=== PATIENT | female | born 1990 | race Caucasian/White ===

== ENCOUNTER 2021-09-11 01:04 | Day surgery (SDC) | payer OTHER, SELFPAY ==
[2021-09-10 16:33] VITALS: BMI 22.3
[2021-09-11 07:56] VITALS: BP 130/80; PULSE 90; RESP 16; TEMP 36.6; O2SAT 100
[2021-09-11] MEDS: LACTATED RINGERS 1,000 ML 30 ML IV CONT (08:00)
[2021-09-11] MEDS: ACETAMINOPHEN 500 MG TABLET 1000 MG PO (08:20)
[2021-09-11 08:22] LABS: Hematocrit 41.9 % (37.0-47.0); Hemoglobin 13.9 g/dL (12.0-15.0)
--- NOTE | 2021-09-11 08:31 | WPDANESEPPF ---
Anes - Initial Pre Proc Eval Procedure: Operation Date: 09/11/21 09:30 Proposed Procedures p Suction Dilation and Curettage - Marcia Toledo MD Date/Time: 09/11/21 08:31 Surgeon: Marcia Toledo MD Pre Op Diagnosis: Missed Ab Patient Data Age: 31 Gender: F Height: 1.63 m Weight: 58.97 kg Allergies Allergy/AdvReac Type Severity Reaction Status Date / Time sulfamethoxazole Allergy Intermediate Hives Verified 09/11/21 08:38 [From Bactrim] trimethoprim [From Bactrim] Allergy Intermediate Hives Verified 09/11/21 08:38 Home Medications Medication Instructions Recorded Confirmed Type No Home Medications 09/10/21 09/10/21 History Laboratory Tests 09/11/21 09/11/21 08:12 08:12 Hgb Pending Hct Pending PT Pending INR Pending APTT Pending Patient hx anesthesia problems: none Family hx anesthesia problems: none Results Review: All pre-operative results and documents have been reviewed as part of the pre-operative evaluation. [facility] Past Medical History Medical History (Updated 09/11/21 @ 08:31 by Shukri Ballesteros DO) VWD (von Willebrand's disease) Social History Social History Smoking status: Never smoker Second hand tobacco smoke exposure: No Alcohol intake: current Alcohol use details: occassionally/socially Substance use: never Substance use type: does not use Living arrangements: with family Spiritual care concerns: No Anes - Eval Final PreProcedure Day of Procedure 09/11/21 08:31 Patient weight: normal Heart: regular rate and rhythm Lungs: clear to auscultation and normal air movement Airway: Mallampati scale class II Neurological: alert and oriented Last oral intake: >/= 8 hours ASA classification: II Emergent: no Anesthetic plan: proceed Anesthesia type and monitoring: general GIVS and standard monitoring Results Review: All pre-operative results and documents have been reviewed as part of the pre-operative evaluation. Informed Consent: The patient's anesthetic plan and its attendant risks and benefits were discussed with the patient/family/POA. Questions were solicited and answers provided to the satisfaction of the patient/family/POA.
[2021-09-11 08:34] LABS: INR 1.1; Prothrombin Time 13.3 Seconds (11.1-14.7)
--- NOTE | 2021-09-11 09:19 | PM.IMHP ---
H&P: HPI History of Present Illness Date/Time: 09/11/21 09:19 Chief Complaint: miscarriage Narrative: Suki is a 31yo at 10w by dates, 7w by US yesterday with mab. hcg was also decreasing. US showed FP without FHT on 2 US two weeks apart. She has had no bleeding. Opos. Does have VW disease. prescribed Stimate but pharmacy did not have it available, nor here, so she got desmopressin IV. Review of Systems Review of Systems: All systems reviewed & are unremarkable except as noted in HPI and below PMFSH Past Medical History Medical History (Updated 09/11/21 @ 09:22 by Marcia Toledo MD) VWD (von Willebrand's disease) Social History Social History Smoking status: Never smoker Second hand tobacco smoke exposure: No Alcohol intake: current Alcohol use details: occassionally/socially Substance use: never Substance use type: does not use Living arrangements: with family Spiritual care concerns: No Meds Home Medications and Allergies Home Medications Medication Instructions Recorded Confirmed Type No Home Medications 09/10/21 09/11/21 History Allergies Allergy/AdvReac Type Severity Reaction Status Date / Time sulfamethoxazole Allergy Intermediate Hives Verified 09/11/21 08:38 [From Bactrim] trimethoprim [From Bactrim] Allergy Intermediate Hives Verified 09/11/21 08:38 Vital Signs Vital Signs - 24 hr 09/11/21 07:56 Temperature 97.8 F Pulse Rate 90 Respiratory Rate 16 Blood Pressure 130/80 Pulse Oximetry 100 Exam Const: General: no acute distress Resp: Effort & Inspection: normal respiratory effort Auscultation: clear to auscultation bilaterally Cardio: Rate: regular rate Rhythm: regular rhythm GI: GI Palp: Yes Soft to palpation Extrem: General: normal to inspection H&P: Results Labs Labs: Short CBC 09/11/21 Range/Units 08:12 Hgb 13.9 (12.0-15.0) g/dL Hct 41.9 (37.0-47.0) % Assessment and Plan Assessment and plan (1) Missed : Code(s): O02.1 - Missed Status: Acute (2) Von Willebrand disease: Code(s): D68.0 - Von Willebrand's disease Status: Acute Additional Plan Pt has opted for D and C. Previously discussed RBA and consented in office. desmopressin given Rh pos. will proceed with suction D and Alen. sea preop
--- NOTE | 2021-09-11 09:23 | WPDHPUPDATE1 ---
History and Physical Update Update Date/Time: 09/11/21 09:23 History and Physical has been reviewed, including an updated exam of the patient. There are NO changes in the patient's condition. Risks, benefits, and alternatives have been discussed and questions answered. Patient agrees to proceed with procedure.
[2021-09-11] MEDS: DOXYCYCLINE 100 MG/NS 100 ML 100 MG/100 ML BAG IVPB (09:34)
--- NOTE | 2021-09-11 09:55 | P.OP_ITS ---
Procedure Note - Detailed Date of Procedure 09/11/21 Pre-op Diagnosis Missed Ab Post-op Diagnosis Same Procedure Performed suction D and C Surgeon Marcia Toledo MD Anesthesia MAC Description of Procedure The patient was taken to the OR and placed in supine position in dorsal lithotomy. She received MAC anesthesia and doxycycline. She was prepped and draped in normal fashion. A speculum was placed and the cervix was grasped with a single tooth tenaculum. A paracervical block was placed with 10cc 0.25% mar rosana with epinephrine. The cervix was sequentially dilated to 8 frederick. The suction was tested and then the suction catheter was inserted into the uterine cavity. Several passes were made until no further products of conception were obtained. The tenaculum was removed and hemostasis was obtained with pressure and monsel's solution. The speculum was removed. The patient tolerated the procedure well and was taken to the recovery room in stable condition. Drains No Packing No Pathology Yes Complications No immediate complications Condition Stable Disposition Same day
[2021-09-11 09:56] VITALS: BP 101/51; PULSE 96; RESP 16; O2SAT 99
[2021-09-11 10:25] VITALS: BP 100/64; PULSE 81
== END 2021-09-11 10:42 | disposition home or self-care (01) ==
PROVIDERS: Anesthesiology; Visit Provider Obstetrics & Gynecology
PROC: (CPT 59820; principal; 2021-09-11 09:30)
DX: O02.1 Missed abortion (principal); D68.0 Von Willebrand disease; Z3A.10 10 weeks gestation of pregnancy
CPT/HCPCS: 59820; 36415; 85014; 85018; 85461; 85610; 85730; 88305; A9270; J2210; J2250; J2597; J2704; J3010; J7120

== ENCOUNTER 2022-07-04 13:49 | Outpatient (CLI) | payer OTHER, SELFPAY ==
--- NOTE | 2022-07-04 13:49 | OBADM ---
This patient, Suki Connolly, admitted to the OB room OB Post 117 for observation. Patient/family oriented to hospital policies and general routines including ID bracelet, bed and alarms, visiting hours, pain management, procedures, bathroom and other care routines, personal items, smoking policy, room service/diet, and visiting hours. Patient/Family are encouraged to report perceived risks to care and to ask questions if they do not understand what they are told or what they should do.
[2022-07-04 14:15] VITALS: BP 130/84; PULSE 87
[2022-07-04 14:17] LABS: Basophils Percent Auto 0.3 % (0.2-1.2); Eosinophils Absolute Auto 0.1 K/mm3 (0-0.3); Eosinophils Percent Auto 0.9 % (0-4.4); Hematocrit 37.8 % (37.0-47.0); Hemoglobin 12.3 g/dL (12.0-15.0); Immature Granulocyte Absolute 0.08 K/mm3 (0.00-0.031); Immature Granulocyte Percent A 0.9 % (0-0.5); Immature Platelet Fraction Pct 27.1 % (0.9-11.2); Lymphocytes Absolute Auto 2.14 K/mm3 (0.9-3.2); Lymphocytes Percent Auto 24.6 % (18.3-44.2); Mean Corpuscular HGB Conc 32.5 g/dl (32-36); Mean Corpuscular Hemoglobin 28.5 pg (26-34); Mean Corpuscular Volume 87.5 fl (80-100); Monocytes Absolute Auto 0.6 K/mm3 (0.1-0.6); Monocytes Percent Auto 6.6 % (2.6-8.5); Neutrophils Absolute Auto 5.8 K/mm3 (1.3-6.7); Neutrophils Percent Auto 66.7 % (45.5-73.1); Platelet Count Result 126 k/mm3 (150-375); Red Blood Count 4.32 M/mm3 (4.2-5.4); Red Cell Distribution Width 14.1 % (11.5-14.5); White Blood Count 8.7 K/mm3 (4.5-10.0)
[2022-07-04 14:19] VITALS: BMI 25.7
[2022-07-04 14:26] LABS: Alanine Aminotransferase 22 U/L (6-35); Albumin Level 3.7 g/dL (3.5-5.1); Alkaline Phosphatase 79 U/L (38-126); Anion Gap 7 mmol/L (8-16); Aspartate Amino Transferase 24 U/L (14-36); Bilirubin,Total 0.4 mg/dL (0.2-1.3); Blood Urea Nitrogen 9 mg/dL (7-17); Calcium 8.5 mg/dL (8.4-10.2); Carbon Dioxide 21 mmol/L (22-30); Chloride 105 mmol/L (98-107); Estimated CRCL calculation 114 ml/min; Estimated Glomerular Filt Rate > 60; Glucose 89 mg/dL (65-110); Large Platelets Present; Platelet Estimate Decreased (Adequate); Potassium 3.8 mmol/L (3.4-5.0); Schistocytes None Seen (NORMAL); Sodium 133 mmol/L (137-145)
[2022-07-04 14:30] VITALS: BP 134/84; PULSE 81
[2022-07-04 14:43] VITALS: BP 130/84; PULSE 81
[2022-07-04 14:45] VITALS: BP 119/72; PULSE 76
--- NOTE | 2022-07-04 14:51 | PC.NURSE ---
Blood pressure and lab work reported to Mateo Levin CNM. Urine currently not resulted. Order received to discharge the pt and call the urine once it results. Per CNM give PIH handout.
[2022-07-04 15:39] LABS: Creatinine Urine 217.7 mg/dL
[2022-07-04 15:53] LABS: Total Protein Urine Random < 5 mg/dL
[2022-07-04 15:54] LABS: Ur Ttl Prot Creatinine Ratio < 0.02 mg/mg (0-0.20)
== END 2022-07-04 15:01 | disposition home or self-care (01) ==
LOC: ANHOBOP 13:54 → ANHOBPP 13:55
PROVIDERS: Advanced Practice Midwife; Visit Provider Obstetrics & Gynecology
DX: O13.9 Gestational [pregnancy-induced] hypertension without significant proteinuria, unspecified trimester (principal); Z3A.00 Weeks of gestation of pregnancy not specified
CPT/HCPCS: 36415; 59025; 80053; 82570; 84156; 84550; 85025; 85055; 99199

== ENCOUNTER 2022-07-11 13:41 | Inpatient (IN) | payer OTHER, SELFPAY ==
[2022-07-11] VITALS (74 sets, daily range): BP systolic 102–145; BP diastolic 63–115; PULSE 63–129; RESP 16; TEMP 36.4–36.8; O2SAT 84–100; BMI 25.8
[2022-07-11 14:21] LABS: Basophils Percent Auto 0.2 % (0.2-1.2); Eosinophils Percent Auto 0.5 % (0-4.4); Hematocrit 38.9 % (37.0-47.0); Hemoglobin 12.7 g/dL (12.0-15.0); Immature Granulocyte Absolute 0.04 K/mm3 (0.00-0.031); Immature Granulocyte Percent A 0.5 % (0-0.5); Immature Platelet Fraction Pct 30.3 % (0.9-11.2); Lymphocytes Absolute Auto 1.81 K/mm3 (0.9-3.2); Lymphocytes Percent Auto 22.2 % (18.3-44.2); Mean Corpuscular HGB Conc 32.6 g/dl (32-36); Mean Corpuscular Volume 85.9 fl (80-100); Monocytes Absolute Auto 0.4 K/mm3 (0.1-0.6); Neutrophils Absolute Auto 5.9 K/mm3 (1.3-6.7); Neutrophils Percent Auto 71.6 % (45.5-73.1); Platelet Count Result 131 k/mm3 (150-375); Red Blood Count 4.53 M/mm3 (4.2-5.4); Red Cell Distribution Width 14.5 % (11.5-14.5); White Blood Count 8.2 K/mm3 (4.5-10.0)
[2022-07-11] MEDS: miSOPROStol 25 MCG TABLET VAGINAL (14:27)
[2022-07-11] MEDS: LACTATED RINGERS 1,000 ML 125 ML IV CONT ×2 (14:28→22:16)
[2022-07-11 14:29] LABS: Alanine Aminotransferase 17 U/L (6-35); Albumin Level 3.9 g/dL (3.5-5.1); Alkaline Phosphatase 90 U/L (38-126); Anion Gap 6 mmol/L (8-16); Aspartate Amino Transferase 22 U/L (14-36); Bilirubin,Total 0.4 mg/dL (0.2-1.3); Blood Urea Nitrogen 8 mg/dL (7-17); Calcium 8.8 mg/dL (8.4-10.2); Carbon Dioxide 20 mmol/L (22-30); Chloride 103 mmol/L (98-107); Estimated CRCL calculation 114 ml/min; Estimated Glomerular Filt Rate > 60; Glucose 108 mg/dL (65-110); Potassium 3.6 mmol/L (3.4-5.0); Sodium 129 mmol/L (137-145)
[2022-07-11 14:30] LABS: Uric Acid 4.4 mg/dL (2.5-7.5)
[2022-07-11 14:31] LABS: Creatinine Urine 168.3 mg/dL; Total Protein Urine Random 6 mg/dL; Ur Ttl Prot Creatinine Ratio 0.04 mg/mg (0-0.20)
--- NOTE | 2022-07-11 15:06 | ADMGEN ---
This patient, Suki Connolly, was admitted to Labor/Delivery/Recovery 107-00. Patient/family oriented to hospital policies and general routines including ID bracelet, bed and alarms, visiting hours, pain management, procedures, bathroom and other care routines, personal items, smoking policy, room service/diet, and visiting hours. Patient/Family are encouraged to report perceived risks to care and to ask questions if they do not understand what they are told or what they should do.
--- NOTE | 2022-07-11 16:23 | WPDOBADMIT ---
Obstetrics - Admit Note Admission Note: record reviewed. No pertinent additions to the history and/or any subsequent changes in the physical findings that are not consistent with the expected course of the were found. IOL, GHTN,SVE /-2 AROM small amount of clear odorless fluid, anticipate vaginal delivery Additions to the history and/or subsequent changes in the physical findings follow. None.
--- NOTE | 2022-07-11 17:02 | WPDANESEPP ---
Anes - Eval Pre Procedure Procedure: Labor Epidural Date/Time: 07/11/22 17:02 Surgeon: Za Preop Diagnosis: Labor Pain Pre Op Diagnosis: Induction of Labor Patient Data Age: 32 Gender: F Height: 1.63 m Weight: 68.2 kg Last Vital Signs Pulse 81 07/11/22 17:00 BP 118/74 07/11/22 17:00 O2 Del Method Room Air 07/11/22 14:11 Allergies Allergy/AdvReac Type Severity Reaction Status Date / Time sulfamethoxazole Allergy Intermediate Hives Verified 09/11/21 08:38 [From Bactrim] trimethoprim [From Bactrim] Allergy Intermediate Hives Verified 09/11/21 08:38 Home Medications Medication Instructions Recorded Confirmed Type prenat.vits,chitra,xgo-tlbx-kivuf 1 tablet PO DAILY 06/19/22 06/19/22 History Laboratory Tests 07/11/22 07/11/22 07/11/22 13:53 13:53 13:53 WBC 8.2 K/mm3 K/mm3 (4.5-10.0) RBC 4.53 M/mm3 M/mm3 (4.2-5.4) Hgb 12.7 g/dL g/dL (12.0-15.0) Hct 38.9 % % (37.0-47.0) MCV 85.9 fl fl (80-100) MCH 28.0 pg pg (26-34) MCHC 32.6 g/dl g/dl (32-36) RDW 14.5 % % (11.5-14.5) Plt Count 131 k/mm3 L k/mm3 (150-375) MPV TNP Immature Gran % (Auto) 0.5 % % (0-0.5) Neut % (Auto) 71.6 % % (45.5-73.1) Lymph % (Auto) 22.2 % % (18.3-44.2) Perkins % (Auto) 5.0 % % (2.6-8.5) Eos % (Auto) 0.5 % % (0-4.4) Baso % (Auto) 0.2 % % (0.2-1.2) Lymph # (Auto) 1.81 K/mm3 K/mm3 (0.9-3.2) Perkins # (Auto) 0.4 K/mm3 K/mm3 (0.1-0.6) Eos # (Auto) 0.0 K/mm3 K/mm3 (0-0.3) Baso # (Auto) 0.0 K/mm3 K/mm3 (0.0-0.1) Abs Immat Gran (auto) 0.04 K/mm3 H K/mm3 (0.00-0.031) Absolute Neuts (auto) 5.9 K/mm3 K/mm3 (1.3-6.7) Absolute Nucleated RBC 0.0 K/mm3 K/mm3 (0.0-0.012) Nucleated RBC % 0.0 % % (0.0-0.2) % Immature Plt Fraction 30.3 % H % (0.9-11.2) Sodium Potassium Chloride Carbon Dioxide Anion Gap BUN Creatinine Estim Creat Clear Calc Estimated GFR Glucose Uric Acid 4.4 mg/dL mg/dL (2.5-7.5) Calcium Total Bilirubin AST ALT Alkaline Phosphatase Total Protein Albumin U Random Total Protein Urine Creatinine Protein/Creat Ratio 2 RPR Pending Blood Type Antibody Screen 07/11/22 07/11/22 07/11/22 13:53 13:53 13:54 WBC RBC Hgb Hct MCV MCH MCHC RDW Plt Count MPV Immature Gran % (Auto) Neut % (Auto) Lymph % (Auto) Perkins % (Auto) Eos % (Auto) Baso % (Auto) Lymph # (Auto) Perkins # (Auto) Eos # (Auto) Baso # (Auto) Abs Immat Gran (auto) Absolute Neuts (auto) Absolute Nucleated RBC Nucleated RBC % % Immature Plt Fraction Sodium 129 mmol/L L mmol/L (137-145) Potassium 3.6 mmol/L mmol/L (3.4-5.0) Chloride 103 mmol/L mmol/L (98-107) Carbon Dioxide 20 mmol/L L mmol/L (22-30) Anion Gap 6 mmol/L L mmol/L (8-16) BUN 8 mg/dL mg/dL (7-17) Creatinine 0.50 mg/dL L mg/dL (0.7-1.0) Estim Creat Clear Calc 114 ml/min ml/min Estimated GFR > 60 (59 - ) Glucose 108 mg/dL mg/dL (65-110) Uric Acid Calcium 8.8 mg/dL mg/dL (8.4-10.2) Total Bilirubin 0.4 mg/dL mg/dL (0.2-1.3) AST 22 U/L U/L (14-36) ALT 17 U/L U/L
[2022-07-11] MEDS: OXYTOCIN 30 UNITS/NS 500 ML 30 UNITS/500 ML BAG 6 UNITS IV CONT (19:08)
[2022-07-12] VITALS (144 sets, daily range): BP systolic 85–144; BP diastolic 46–86; PULSE 52–136; RESP 14–18; TEMP 36.2–37.5; O2SAT 96–100
[2022-07-12] MEDS: LACTATED RINGERS 1,000 ML 125 ML IV CONT ×2 (01:26→03:34)
[2022-07-12] MEDS: diphenhydrAMINE HCl INJ 50 MG/ML VIAL 25 MG IV PUSH (03:31)
--- NOTE | 2022-07-12 08:34 | PM.OBPRVD ---
OB - Delivery Note Procedure Delivery date: 07/12/22 Procedure: Events: Gestational Hypertension Induction method: Per Misoprostol Protocol and Per Pitocin Protocol Delivery augmentation: Rupture of Membranes Delivery monitor: External FHT and External Uterine Route of delivery: Episiotomy description: None Laceration Description: None Specimen: No Quantitative Blood Loss (ml): 85 Anesthesia type: Epidural Baby Date of : 07/12/22 Time of : 08:22 Weeks of gestation at delivery: 39 Infant gender: Female Weight (pounds): 7 Weight (ounces): 1 presentation: vertex position: Right Occiput Posterior Placenta delivery description: Expressed Cord Vessel Description: 3 Vessels, Nuchal Cord (x1), Tight and Clamped/Cut score one minute: 7 score five minutes: 9 Narrative: mother and baby in stable condition
[2022-07-12] MEDS: WITCH HAZEL 40 PADS 1 PAD TOPICAL (08:54)
[2022-07-12] MEDS: OXYTOCIN 30 UNITS/NS 500 ML 30 UNITS/500 ML BAG 125 UNITS IV CONT (08:54)
[2022-07-12] MEDS: BENZOCAINE 20% AER SPR (*SP) 56 GM CAN 1 SPRAY TOPICAL (08:54)
--- NOTE | 2022-07-12 11:10 | PC.NURSE ---
Patient transferred to post room #285 via wheel chair. Support person present. Oriented to unit, room, information board, rooming in, admission packet and security measures. Patient verbalizes understanding.
[2022-07-13] MEDS: IBUPROFEN 600 MG TABLET PO (04:37)
[2022-07-13 04:51] VITALS: BP 134/82; PULSE 53; RESP 16; TEMP 36.7; O2SAT 99
[2022-07-13 05:10] LABS: Hematocrit 33.9 % (37.0-47.0); Hemoglobin 10.8 g/dL (12.0-15.0)
--- NOTE | 2022-07-13 08:14 | PM.OBPNVD ---
OB - PN: Subj Subjective Date/time seen: 07/13/22 08:14 s/p vaginal delivery OB - PN: Obj Data Labs 07/13/22 04:45 07/11/22 13:53 Labs: Laboratory Results - last 24 hr 07/13/22 04:45 Hgb 10.8 L Hct 33.9 L OB - PN A/P Plan day: 1 Plan: routine care Time Spent With Patient Time: Total time spent is greater than 50% in coordination of care (as documented) at patient's floor/unit and/or counseling patient: Exam Const: General: cooperative, healthy appearing and comfortable
[2022-07-13 09:30] VITALS: BP 119/73; PULSE 67; RESP 16; TEMP 36.1; O2SAT 100
[2022-07-13] MEDS: ACETAMINOPHEN 325 MG TABLET 650 MG PO (09:43)
[2022-07-13] MEDS: MULTIVIT/MIN/PREN/FOL AC/IRON TABLET 1 TAB PO (09:44)
[2022-07-13] MEDS: DOCUSATE SODIUM 100 MG CAPSULE PO ×2 (09:44→19:31)
--- NOTE | 2022-07-13 11:41 | WPDANLDPN2 ---
Anes-Prog Note L&D Date/Time: 07/13/22 11:41 Comfortable throughout: labor and delivery Neuraxial method: epidural Epidural/Spinal procedure site: clean & non-tender Neuro status: Neuro function grossly intact. Cardiovascular status: normal Respiratory status: normal Airway patency: baseline Mental status: baseline Post-Op hydration status: normal Vital Signs: Last Vital Signs Temp 36.7 C 07/13/22 04:51 Pulse 53 L 07/13/22 04:51 Resp 16 07/13/22 04:51 BP 134/82 07/13/22 04:51 Pulse Ox 99 07/13/22 04:51 O2 Del Method Room Air 07/12/22 23:51 Pain score (VAS): 3/10 I/O: Intake & Output 07/12/22 07/13/22 07/13/22 23:59 07:59 15:59 Intake Total 240 Balance 240 Post-procedural complaints: none Patient feedback: Patient satisfied with anesthetic care.
[2022-07-13 19:30] VITALS: BP 135/70; PULSE 56; RESP 15; TEMP 36.7; O2SAT 99
[2022-07-14] MEDS: IBUPROFEN 600 MG TABLET PO (00:08)
[2022-07-14] MEDS: DOCUSATE SODIUM 100 MG CAPSULE PO (07:45)
[2022-07-14] MEDS: MULTIVIT/MIN/PREN/FOL AC/IRON TABLET 1 TAB PO (07:45)
[2022-07-14 07:50] VITALS: BP 146/87; PULSE 55; RESP 16; TEMP 36.6; O2SAT 100
--- NOTE | 2022-07-14 08:15 | PM.OBPNVD ---
OB - PN: Subj Subjective Date/time seen: 07/14/22 08:15 Patient comments: no complaints baby status: doing well OB - PN: Obj Data Labs 07/13/22 04:45 07/11/22 13:53 OB - PN A/P Plan day: 2 Plan: routine care and discharge home (F/U in 1 week for bp check) Time Spent With Patient Time: Total time spent is greater than 50% in coordination of care (as documented) at patient's floor/unit and/or counseling patient: Time with patient: less than 15 minutes Review of Systems Review of Systems: All systems reviewed & are unremarkable except as noted in HPI and below Exam Narrative: Fundus firm and vaginal flow controlled. No lower ext redness, warmth, or edema. Negative homans. Denies h/a, v/d or e/p. Reflexes normal. Const: General: comfortable Chest: Breast/axilla inspection: normal inspection of the breasts Resp: Effort & Inspection: normal respiratory effort Cardio: Rate: regular rate GI: GI Palp: Yes Soft to palpation Psych: Appearance: grossly normal Affect: normal affect Attitude: cooperative Thought content: Yes Normal thought content present Judgement: Good judgement present (Psych)
--- NOTE | 2022-07-14 08:17 | PM.OBDSVD ---
DS: Admitting Diagnosis Discharge Date 07/14/22 Admitting Diagnosis Labor DS: Discharge Diagnosis Discharge Diagnosis (1) Vaginal delivery: Code(s): O80 - Encounter for full-term uncomplicated delivery Status: Acute OB - DS: Summary OB Procedures : None OB Procedures Intrapartum: Spontaneous Vag Delivery OB Procedures: : None Time Spent with Patient Time attestation: Total time spent providing and/or coordinating discharge services: Discharge Plan Discharge Attending physician on discharge: Jessie Levin Discharging Clinician: Karen Max Patient Disposition: Home, Self-Care Activity: pelvic rest Diet: as tolerated Stand Alone Forms: General Discharge Information Follow-up/Referrals: Jessie Levin CNM [Primary Care Provider] - Discharge Medications: Continued #2 Tablet 1 tablet PO DAILY Date of admission: 07/11/22 13:41 Primary Care Provider: Jessie Levin Admitting Provider: Arthur Mendenhall Attending physician on admission: Arthur Mendenhall Condition: Stable
[2022-07-14 10:00] VITALS: BP 138/82; PULSE 58
[2022-07-14 10:01] LABS: Rapid Plasma Reagin Non-Reactive (NonReactive)
--- NOTE | 2022-07-14 11:00 | PC.NURSE ---
Patient viewed the discharge video Mother & Baby Care, The First Two Weeks . Patient was given the opportunity and encouraged to ask questions. Patient verbalized understanding of information shared and has been given the mother/baby guide for home reference.
--- NOTE | 2022-07-14 16:31 | PC.NURSE ---
[id number] Introductions were made, then consulted with patient to assess needs related to . Mother led the conversation with her?plans to feed?her infant and the?experience so far. Mother has to her breast with cross cradle positioning using a nipple shield. Resources provided for inpatient and outpatient services with the feeding sheet and the mom/baby guide. Mother voiced understanding of information and requests assistance. Nipple shield provided to mother prior to RN meeting her due to ineffective related to the having a tongue that has a frenulum that pulls when extends the tongue. Reviewed good handwashing, cleaning the nipple shield and application. Discussed with mom the nipple shield precautions, possible complications associated with the risks and benefits. Reviewed practicing with a nipple shield, then without and how to protect the milk supply and production. Mother is receptive to attempting to breastfeed without the nipple shield. is moved to the left breast into football positioning and effective breastfeeds with no assistive devices. Mother led the conversation with her experience and plan to feed her infant so far and her ability to independently latch optimally without discomfort. Reminded parents to use good handwashing technique to prevent infection. Mother is feeding appropriately for growth of and understands stimulating to eat if needed. has had appropriate feedings in the last 24 hours meets the outcomes for weight, output and jaundice at this time. Mother states she is confident to continue effectively and pump if needed related to using a nipple shield or infant not latching with her at home, when to call for assistance and denies any additional assistance or education at this time. Reinforced understanding of milk production, transition of milk, signs of adequate intake, transition of stool, prevention/relief of engorgement, responsive watching for feeding cues, the different methods of stimulating infant to breastfeed 2-3 hours after the start of the last feeding, community resources, medication information reviewed per [employer] and when to call a provider using the resource of the mom and baby guide/[facility] website. Mother voiced understanding of the education shared. Reported to the primary RN. 1045 - Mother latched her independently to the right breast using a nipple shield, then after began to suck she removed the nipple shield and latched infant effectively to the breast with no pain, rocking jaw motion was visualized along with appropriate suck/swallowing. Mother has increased confidence and voiced understanding to call if she has questions or needs a consult.
[2022-07-15 09:12] VITALS: BP 134/88; PULSE 77; RESP 20; TEMP 37.2; O2SAT 97
== END 2022-07-14 11:33 | disposition home or self-care (01) | DRG 806 ==
LOC: ANHOB2 07-14 10:16 → ANHLDR 07-15 10:58 → ANHOB2 07-15 10:58
PROVIDERS: Admitting Provider Obstetrics & Gynecology; PCP Advanced Practice Midwife; Visit Provider Advanced Practice Midwife
DX: O13.4 Gestational [pregnancy-induced] hypertension without significant proteinuria, complicating childbirth (principal); D68.00 Von Willebrand disease, unspecified; Z37.0 Single live birth; O99.12 Other diseases of the blood and blood-forming organs and certain disorders involving the immune mechanism complicating childbirth; Z3A.38 38 weeks gestation of pregnancy; O43.193 Other malformation of placenta, third trimester; O36.8330 Maternal care for abnormalities of the fetal heart rate or rhythm, third trimester, not applicable or unspecified; O69.1XX0 Labor and delivery complicated by cord around neck, with compression, not applicable or unspecified
CPT/HCPCS: 36415; 80053; 82570; 84156; 84550; 85014; 85018; 85025; 85055; 86592; 86850; 86900; 86901; A9270; J1200; J2590; J2795; J7120

== ENCOUNTER 2022-07-18 14:00 | Outpatient (CLI) | payer OTHER, SELFPAY ==
[2022-07-18 14:24] LABS: Basophils Absolute Auto 0.1 K/mm3 (0.0-0.1); Basophils Percent Auto 0.8 % (0.2-1.2); Eosinophils Absolute Auto 0.2 K/mm3 (0-0.3); Eosinophils Percent Auto 2.4 % (0-4.4); Hematocrit 45.1 % (37.0-47.0); Hemoglobin 14.3 g/dL (12.0-15.0); Immature Granulocyte Absolute 0.12 K/mm3 (0.00-0.031); Immature Granulocyte Percent A 1.4 % (0-0.5); Lymphocytes Absolute Auto 1.99 K/mm3 (0.9-3.2); Lymphocytes Percent Auto 22.4 % (18.3-44.2); Mean Corpuscular HGB Conc 31.7 g/dl (32-36); Mean Corpuscular Hemoglobin 27.5 pg (26-34); Mean Corpuscular Volume 86.7 fl (80-100); Mean Platelet Volume 12.5 fl (7.4-10.4); Monocytes Absolute Auto 0.5 K/mm3 (0.1-0.6); Platelet Count Result 190 k/mm3 (150-375); Red Cell Distribution Width 14.6 % (11.5-14.5); White Blood Count 8.9 K/mm3 (4.5-10.0)
[2022-07-18 14:36] LABS: Alanine Aminotransferase 91 U/L (6-35); Albumin Level 4.2 g/dL (3.5-5.1); Alkaline Phosphatase 90 U/L (38-126); Anion Gap 3 mmol/L (8-16); Aspartate Amino Transferase 45 U/L (14-36); Bilirubin,Total 0.5 mg/dL (0.2-1.3); Blood Urea Nitrogen 10 mg/dL (7-17); Calcium 9.4 mg/dL (8.4-10.2); Carbon Dioxide 29 mmol/L (22-30); Chloride 103 mmol/L (98-107); Estimated Glomerular Filt Rate > 60; Glucose 76 mg/dL (65-110); Potassium 3.8 mmol/L (3.4-5.0); Sodium 135 mmol/L (137-145); Uric Acid 4.1 mg/dL (2.5-7.5)
== END 2022-07-18 14:01 | disposition home or self-care (01) ==
PROVIDERS: PCP Advanced Practice Midwife; Visit Provider Advanced Practice Midwife
DX: O13.9 Gestational [pregnancy-induced] hypertension without significant proteinuria, unspecified trimester (principal); Z3A.00 Weeks of gestation of pregnancy not specified
CPT/HCPCS: 36415; 80053; 84550; 85025

== ENCOUNTER 2023-04-28 10:04 | Emergency (ER) | payer OTHER, SELFPAY ==
--- NOTE | 2023-04-28 10:09 | ED.URI ---
HPI - URI/Sore Throat General Chief Complaint: Upper Respiratory Infection Stated Complaint: cough,congestion Time Seen by Provider: 04/28/23 10:09 Source: patient Mode of arrival: ambulatory Limitations: no limitations History of Present Illness HPI Narrative: Suki is a 32-year-old female patient presenting to the clinic today with complaints of cough, sinus pressure, and nasal congestion 2-3 weeks. She reports no fever chills. Does have some yellow nasal drainage. MD elicited complaint: cough, nasal congestion and sinus pain Related Data Home Medications Medication Instructions Recorded Confirmed erik-bárbaraestrad-cuauhtemoc.mefol 3 1 tablet PO DAILY 04/28/23 04/28/23 mg-0.02 mg-0.451 mg(24)/0.451 mg(4)tablet (Beyaz (28)) Allergies Allergy/AdvReac Type Severity Reaction Status Date / Time sulfamethoxazole AdvReac Mild Hives Verified 04/28/23 10:11 [From Bactrim] trimethoprim [From Bactrim] AdvReac Mild Hives Verified 04/28/23 10:11 Review of Systems Review of Systems: Pertinent positives per HPI. Patient denies any fever, chills, rash, headache, visual changes, dizziness, cough, shortness of breath, chest pain, palpitations, nausea, vomiting, diarrhea, constipation, abdominal pain, or any urinary issues. [facility] Family History Family History Other Patient denies significant medical history Social History Social History Smoking status: Never smoker Second hand tobacco smoke exposure: No Alcohol intake: current Alcohol use details: occassionally/socially Substance use: never Substance use type: does not use Lack of Transportation: No Lack of Food: Never True Current Housing: I Have Housing Concerned About Future Housing: No Difficulty Paying Gas/Electric Bills: No Difficulty Paying for Meds: No Currently Unemployed: No Education: Bachelor's Degree Difficulty w/ Childcare or Family Care: No Living arrangements: with family Spiritual care concerns: No Comments At the time of my signature, I reviewed and agree with the nursing past medical, surgical, social, and family history. There is no relevant family history pertinent to the patient complaint. Exam Narrative: General: Well-developed, well nourished, in no apparent distress Head: Normocephalic, atraumatic Eyes: Pupils equally round and reactive to light bilaterally, EOM intact, sclera and conjunctive clear, no discharge, lids normal Ears: TMs intact and clear, ear canals clear, no drainage, grossly hearing normal. Nose: Nares patent, yellow nasal discharge, moderate inflammation, maxillary and frontal sinus tenderness. Mouth: Oral pharynx without lesions or masses, good dentition, MMM. Tonsils surgically absent Neck: Supple, trachea midline, no enlargement of anterior or posterior cervical nodes, no thyroid masses or goiter palpable. Cardio: Regular rate and rhythm, s1 and s2 normal, no murmur appreciated. Resp: Clear to auscultation bilaterally, no rhonchi, rales, wheezing or rubs Course Course Emergency Course: Portions of this record may have been created with voice recognition software. Level of Care: Express Care Visit Vital Signs Vital signs: Vital signs reviewed MDM - URI/Sore Throat MDM Narrative Medical decision making narrative: At the time of visit patient is resting comfortably on the exam table. Patient appears to be nontoxic. I suspect patient has acute bacterial rhinosinusitis. Prescription for Augmentin and prednisone was sent to the pharmacy. Supportive measures were discussed with the patient and they voiced understanding discharge instructions and agrees to treatment plan. Return precautions reviewed Differential Diagnosis Differential diagnosis: Likely upper respiratory infection, otitis media, sinusitis, viral infection, bronchitis, influenza, pharyngit
[2023-04-28 10:10] VITALS: BP 124/88; PULSE 78; RESP 18; TEMP 36.1; O2SAT 100
== END 2023-04-28 10:21 | disposition home or self-care (01) ==
PROVIDERS: Emergency Provider Nurse Practitioner Family
DX: J01.90 Acute sinusitis, unspecified (principal)
CPT/HCPCS: 99213; G0463